=== PATIENT | male | born 1980 | race Two or more races ===

== ENCOUNTER 2019-04-22 11:49 | Inpatient (IN) | payer MEDICAID ==
[~2019-04-22] VITALS: Ht 167.6 cm; Wt 83.0 kg
[2019-04-22 11:55] VITALS: BP 138/71
[2019-04-22 13:09] LABS: BASOPHILS % (AUTO) 1.4 % (0.0-2.0); EOSINOPHILS % (AUTO) 0.6 % (0.0-3.0); HEMATOCRIT 37.3 % (42.0-52.0); HEMOGLOBIN 11.5 G/DL (14.2-18.0); MEAN CORPUSCULAR VOLUME 79 FL (80-99); MONOCYTES % (AUTO) 8.8 % (1.0-10.0); NEUTROPHILS % (AUTO) 76.3 % (45.0-75.0); PLATELET COUNT 133 K/UL (150-450); RED BLOOD COUNT 4.72 M/UL (4.70-6.10); RED CELL DISTRIBUTION WIDTH 16.5 % (11.6-14.8); WHITE BLOOD COUNT 7.4 K/UL (4.8-10.8)
[2019-04-22 13:10] LABS: ANION GAP 7 mmol/L (5-15); BLOOD UREA NITROGEN 15 mg/dL (7-18); CALCIUM 9.1 MG/DL (8.5-10.1); CARBON DIOXIDE 27 MMOL/L (21-32); CHLORIDE 108 MMOL/L (98-107); CREATININE 0.7 MG/DL (0.55-1.30); POTASSIUM 3.9 MMOL/L (3.5-5.1); SODIUM 142 MMOL/L (136-145)
--- NOTE | 2019-04-22 13:10 | Diagnostic Imaging Report ---
EXAM: CT Head Without Intravenous Contrast CLINICAL HISTORY: SZ TECHNIQUE: Axial computed tomography images of the head/brain without intravenous contrast. CTDI is 70.38 mGy and DLP is 1435 mGy-cm. One or more of the following dose reduction techniques were used: automated exposure control, adjustment of the mA and/or kV according to patient size, use of iterative reconstruction technique. COMPARISON: No relevant prior studies available. FINDINGS: Brain: No hemorrhage. No edema. Bifrontal-temporal encephalomalacia. Ventricles: No ventriculomegaly. Bones/joints: No acute fracture. Soft tissues: Unremarkable. Sinuses: No acute sinusitis. Mastoid air cells: No mastoid effusion. IMPRESSION: No acute intracranial process.
[2019-04-22 13:24] LABS: ALANINE AMINOTRANSFERASE 86 U/L (12-78); ALBUMIN 3.6 G/DL (3.4-5.0); ALBUMIN/GLOBULIN RATIO 0.8 (1.0-2.7); ALKALINE PHOSPHATASE 99 U/L (46-116); ASPARTATE AMINO TRANSFERASE 52 U/L (15-37); BILIRUBIN,TOTAL 0.6 MG/DL (0.2-1.0); CKMB 0.9 NG/ML (0.0-3.6); CREATINE KINASE 109 U/L (26-308)
--- NOTE | 2019-04-22 13:28 | Emergency Room Report ---
History of Present Illness General Chief Complaint: Seizure Source: Patient Present Illness HPI Disclaimer: Please note that this report is being documented using DRAGON technology. This can lead to erroneous entry secondary to incorrect interpretation by the dictating instrument. HPI: 38-year-old otherwise healthy male presents by EMS after reportedly having a generalized tonic-clonic seizure. According to EMS, they were called by a bystander as the patient was having convulsions on the sidewalk. The patient has no recollection. He denies having a seizure disorder, taking any medications for seizure, prior seizures, alcohol use, drug use or any recent change in his health. States he takes no medication. Denies any recent fevers , chills, vision changes, headaches, neck or back pain, chest pain, shortness of breath, vomiting, diarrhea, rash. PMH: Denies PSH: None Allergies: None Social Hx: Denies alcohol or drug use Allergies: Coded Allergies: No Known Allergies (Unverified , 04/22/19) Nursing Documentation-PMH Past Medical History: No Stated History Review of Systems All Other Systems: negative except mentioned in HPI Physical Exam Vital Signs Date Time Temp Pulse Resp B/P (MAP) Pulse Ox O2 Delivery O2 Flow Rate FiO2 04/22/19 11:39 97.5 108 18 112/62 (79) Room Air 04/22/19 11:55 97 General: Awake and alert, no acute distress HEENT: NC/AT. No scalp or face hematoma, lacerations or abrasions. EOMI. PERRLA. Visual boswell are full. No nystagmus. Facial expressions are symmetrical. No facial droop. Cardiovascular: RRR. S1 and S2 normal. No murmur appreciated Resp: Normal work of breathing. No cough, wheezing or crackles appreciated Abdomen: Abdomen is soft, nondistended. Nontender Skin: Intact. No abrasions, laceration or rash over the exposed skin MSK: Normal tone and bulk. Moving all extremities. No obvious deformity. There is no drift in the upper or lower extremities bilaterally. Neuro: Awake and alert. Mentating appropriately. Facial expression symmetrical. No dysarthria, no ataxia on [id number]-hgtpdr or auxw-rk-izrk testing. Sensation to light touch is intact over the upper and lower extremities. The patient has intact speech with good repetition, comprehension. Fund of knowledge is full. No aphasia, no neglect. Medical Decision Making Diagnostic Impression: Primary Impression: Seizure ER Course 38-year-old male with no reported medical history presents for evaluation of first-time seizure. He is awake, alert, physical exam is reassuring, no focal findings on neuro exam. Patient denies any drug or alcohol use, prior seizure history or taking any new medications. He appears returned to his baseline except he has no recollection of the events leading him today. We will start a broad work-up for metabolic, infectious causes of seizure disorder as well as a head CT to scan for intracranial bleed/mass. Laboratory Tests Test 04/22/19 12:35 04/22/19 14:08 White Blood Count 7.4 K/UL (4.8-10.8) Red Blood Count 4.72 M/UL (4.70-6.10) Hemoglobin 11.5 G/DL (14.2-18.0) L Hematocrit 37.3 % (42.0-52.0) L Mean Corpuscular Volume 79 FL (80-99) L Mean Corpuscular Hemoglobin 24.5 PG (27.0-31.0) L Mean Corpuscular Hemoglobin Concent 30.9 G/DL (32.0-36.0) L Red Cell Distribution Width 16.5 % (11.6-14.8) H Platelet Count 133 K/UL (150-450) L Mean Platelet Volume 15.7 FL (6.5-10.1) H Neutrophils (%) (Auto) 76.3 % (45.0-75.0) H Lymphocytes (%) (Auto) 13.0 % (20.0-45.0) L Monocytes (%) (Auto) 8.8 % (1.0-10.0) Eosinophils (%) (Auto) 0.6 % (0.0-3.0) Basophils (%) (Auto) 1.4 % (0.0-2.0) Sodium Level 142 MMOL/L (136-145) Potassium Level 3.9 MMOL/L (3.5-5.1) Chloride Level 108 MMOL/L (98-107) H Carbon Dioxide Level 27 MMOL/L (21-32) Anion Gap 7 mmol/L (5-15) Blood Urea Nitrogen 15 mg/dL (7-18) Creatinine 0.7 MG/DL (0.55-1.30) Estimat Glomerular Filtration Rate > 60 mL/min (>60) Glucose Level 148 MG/DL (74-106) H Calcium Level 9.1 MG/DL (8.5-10.1) Total Bilirubin 0.6 MG/DL (0.2-1.0) Aspartate Amino Transf (AST/SGOT) 52 U/L (15-37) H Alanine Aminotransferase (ALT/SGPT) 86 U/L (12-78) H Alkaline Phosphatase 99 U/L (46-116) Total Creatine Kinase 109 U/L (26-308) Creatine Kinase MB 0.9 NG/ML (0.0-3.6) Creatine Kinase MB Relative Index 0.8 Troponin I 0.000 ng/mL (0.000-0.056) Total Protein 8.2 G/DL (6.4-8.2) Albumin 3.6 G/DL (3.4-5.0) Globulin 4.6 g/dL Albumin/Globulin Ratio 0.8 (1.0-2.7) L Salicylates Level 0.3 ug/mL (2.8-20) L Acetaminophen Level < 2 MCG/ML (10-30) L Urine Color Yellow Urine Appearance Clear Urine pH 5 (4.5-8.0) Urine Specific [place] 1.025 (1.005-1.035) Urine Protein 3+ (NEGATIVE) H Urine Glucose (UA) Negative (NEGATIVE) Urine Ketones 1+ (NEGATIVE) H Urine Blood 3+ (NEGATIVE) H Urine Nitrite Negative (NEGATIVE) Urine Bilirubin Negative (NEGATIVE) Urine Urobilinogen Normal MG/DL (0.0-1.0) Urine Leukocyte Esterase 1+ (NEGATIVE) H Urine RBC 2-4 /HPF (0 - 0) H Urine WBC 0-2 /HPF (0 - 0) Urine Squamous Epithelial Cells None /LPF (NONE/OCC) Urine Bacteria Few /HPF (NONE) Urine Opiates Screen Negative (NEGATIVE) Urine Barbiturates Screen Negative (NEGATIVE) Phencyclidine (PCP) Screen Negative (NEGATIVE) Urine Amphetamines Screen Negative (NEGATIVE) Urine Benzodiazepines Screen Negative (NEGATIVE) Urine Cocaine Screen Negative (NEGATIVE) Urine Marijuana (THC) Screen Negative (NEGATIVE) EKG Diagnostic Results EKG Time: 12:37 EP Interpretation: Normal sinus rhythm, normal axis, normal intervals Rate: normal Rhythm: NSR ST Segments: no acute changes Rhythm Strip Diag. Results Rhythm Strip Time: 12:37 EP Interpretation: yes Rate: 83 Rhythm: NSR CT/MRI/US Diagnostic Results CT/MRI/US Diagnostic Results : Impression Final Report EXAM: CT Head Without Intravenous Contrast CLINICAL HISTORY: SZ TECHNIQUE: Axial computed tomography images of the head/brain without intravenous contrast. CTDI is 70.38 mGy and DLP is 1435 mGy-cm. One or more of the following dose reduction techniques were used: automated exposure control, adjustment of the mA and/or kV according to patient size, use of iterative reconstruction technique. COMPARISON: No relevant prior studies available. FINDINGS: Brain: No hemorrhage. No edema. Bifrontal-temporal encephalomalacia. Ventricles: No ventriculomegaly. Bones/joints: No acute fracture. Soft tissues: Unremarkable. Sinuses: No acute sinusitis. Mastoid air cells: No mastoid effusion. IMPRESSION: No acute intracranial process. Radiologist: Gabe Loomis M.D. Electronically Signed: 04/22/19 13:09 Study ready at 13:06 and initial results transmitted at 13:09 Reevaluation Time: 13:27 Last Vital Signs Date Time Temp Pulse Resp B/P (MAP) Pulse Ox O2 Delivery O2 Flow Rate FiO2 04/22/19 11:55 98.3 103 18 138/71 97 Room Air Reevaluation Impression Alerted by nursing staff that the patient had a brief episode of generalized tonic-clonic convulsions. By the time I went to assess the patient he had already finished. He will be loaded with [address] scan of the head is pending. Lab work thus far unremarkable. 1420: CT scan of the head shows no evidence of mass, bleed or other significant pathology. The patient is easily arousable but again has no recollection of the events. He appears to have suffered his second seizure and will require admission for further work-up and neurology evaluation. Tox screen is negative. 1+ leukocyte esterase on urine though overall does not look grossly infectious. He is amenable to admission. Disposition: ADMITTED INPATIENT Condition: Serious Referrals: NOT CHOSEN IPA/,REFERRING (PCP) Desmond Awan MD Apr 22, 2019 13:28
[2019-04-22] MEDS ORDERED: levETIRAcetam 1,000mg/NS100ml 100 ML IVPB ONE (13:30)
[2019-04-22 14:11] VITALS: BP 135/94
[2019-04-22 14:25] LABS: APPEARANCE,URINE CLEAR; BILIRUBIN, URINE NEGATIVE (NEGATIVE); GLUCOSE, URINE (UA) NEGATIVE (NEGATIVE); KETONES,URINE 1+ (NEGATIVE); LEUKOCYTE ESTERASE ,URINE 1+ (NEGATIVE); NITRITE,URINE NEGATIVE (NEGATIVE); PH,URINE 5 (4.5-8.0); PROTEIN,URINE 3+ (NEGATIVE); UROBILINOGEN,URINE NORMAL MG/DL (0.0-1.0)
[2019-04-22 14:36] LABS: COLOR,URINE YELLOW
[2019-04-22] MEDS ORDERED: Hydromorphone 0.5mg/0.5ml inj IVP PRN (14:45)
[2019-04-22] MEDS ORDERED: Milk of Magnesia 30ml Ud ORAL PRN (14:45)
[2019-04-22] MEDS ORDERED: Miralax 17gm pkt ORAL PRN (14:45)
[2019-04-22] MEDS ORDERED: Acetaminophen 650 MG SUPP RECTAL PRN ×2 (14:45)
[2019-04-22] MEDS ORDERED: Gadavist 7.5mMol/7.5ml vial IV PRN (14:45)
[2019-04-22] MEDS ORDERED: traMADol 50mg tab ORAL PRN (14:45)
[2019-04-22] MEDS ORDERED: LORazepam Inj 2mg/ml 1ml IV PRN (14:45)
[2019-04-22] MEDS ORDERED: Metoclopramide 10mg/2ml Inj IVP PRN (14:45)
[2019-04-22] MEDS ORDERED: Zolpidem 5mg tab ORAL PRN (14:45)
[2019-04-22] MEDS ORDERED: Docusate 100mg cap ORAL PRN ×2 (14:58→15:15)
[2019-04-22 15:05] VITALS: BP 138/85
--- NOTE | 2019-04-22 15:31 | Diagnostic Imaging Report ---
EXAM: XR Chest, 1 View CLINICAL HISTORY: SOB TECHNIQUE: Frontal view of the chest. COMPARISON: No relevant prior studies available. FINDINGS: Lungs: Reduced lung volumes and accentuation of markings. No confluent consolidation. Pleural space: Unremarkable. No pneumothorax. Heart: Cardiomegaly. Mediastinum: Unremarkable. Bones/joints: No acute fracture. IMPRESSION: Reduced lung volumes and accentuation of markings. No confluent consolidation.
[2019-04-22] MEDS ORDERED: HydrALAZINE 25mg tab ORAL PRN (15:45)
[2019-04-22 16:02] VITALS: BP 140/91
[2019-04-22] MEDS ORDERED: Enoxaparin 40mg Inj SUBQ SCH ×2 (16:08→17:00)
[2019-04-22 16:20] VITALS: BP 149/95
--- NOTE | 2019-04-22 18:37 | Diagnostic Imaging Report ---
EXAM: MR Head Without And With Intravenous Contrast CLINICAL HISTORY: SZ TECHNIQUE: Magnetic resonance images of the head/brain without and with intravenous contrast in multiple planes. COMPARISON: No relevant prior studies available. FINDINGS: Brain: No acute infarct. Bifrontal-temporal encephalomalacia. Ventricles: Unremarkable. No ventriculomegaly. Bones/joints: Unremarkable. Sinuses: Unremarkable as visualized. No acute sinusitis. Mastoid air cells: Unremarkable as visualized. No mastoid effusion. Orbits: Unremarkable as visualized. Other findings: Hemosiderin staining from prior intracranial hemorrhage. IMPRESSION: No acute infarct.
[2019-04-22 20:00] VITALS: BP 149/100
[2019-04-22 20:47] LABS: CREATINE KINASE 99 U/L (26-308)
[2019-04-23] VITALS: BP 136/79
[2019-04-23 04:00] VITALS: BP 141/81
[2019-04-23 06:44] LABS: BASOPHILS % (AUTO) 0.9 % (0.0-2.0); EOSINOPHILS % (AUTO) 1.2 % (0.0-3.0); HEMATOCRIT 37.8 % (42.0-52.0); HEMOGLOBIN 11.8 G/DL (14.2-18.0); MEAN CORPUSCULAR VOLUME 79 FL (80-99); MONOCYTES % (AUTO) 9.8 % (1.0-10.0); PLATELET COUNT 130 K/UL (150-450); RED BLOOD COUNT 4.79 M/UL (4.70-6.10); RED CELL DISTRIBUTION WIDTH 16.2 % (11.6-14.8); WHITE BLOOD COUNT 8.6 K/UL (4.8-10.8)
[2019-04-23 07:18] LABS: ANION GAP 8 mmol/L (5-15); BLOOD UREA NITROGEN 10 mg/dL (7-18); CALCIUM 9.2 MG/DL (8.5-10.1); CARBON DIOXIDE 27 MMOL/L (21-32); CHLORIDE 103 MMOL/L (98-107); CREATININE 0.6 MG/DL (0.55-1.30); POTASSIUM 3.2 MMOL/L (3.5-5.1); SODIUM 138 MMOL/L (136-145)
[2019-04-23 08:00] VITALS: BP 117/80
--- NOTE | 2019-04-23 10:03 | History and Physical ---
History of Present Illness General Date patient seen: Apr 23, 2019 Time patient seen: 11:00 Reason for Hospitalization: Seizure Present Illness HPI Patient is a poor historian history obtained from chart "38-year-old otherwise healthy male presents by EMS after reportedly having a generalized tonic-clonic seizure. According to EMS, they were called by a bystander as the patient was having convulsions on the sidewalk. The patient has no recollection. He denies having a seizure disorder, taking any medications for seizure, prior seizures, alcohol use, drug use or any recent change in his health. States he takes no medication. Denies any recent fevers , chills, vision changes, headaches, neck or back pain, chest pain, shortness of breath, vomiting, diarrhea, rash." On my conversation patient says that he has had a prior history of seizures and takes medication. Allergies: Coded Allergies: No Known Allergies (Unverified , 04/22/19) Medication History Scheduled Levetiracetam (Keppra), 500 MG ORAL Q12HR Patient History History Provided By: Medical Record, EMS Healthcare decision maker Resuscitation status Full Code Advanced Directive on File No Patient History Narrative PFH: denies Soc history: denies drugs Review of Systems All Other Systems: negative except mentioned in HPI Physical Exam General Appearance: no apparent distress, alert Lines, tubes and drains: peripheral HEENT: normocephalic, atraumatic, anicteric Neck: non-tender, normal alignment, supple Respiratory/Chest: chest wall non-tender, lungs clear, normal breath sounds Cardiovascular/Chest: normal peripheral pulses, normal rate, regular rhythm Abdomen: normal bowel sounds, non tender, soft Extremities: normal range of motion, non-tender, normal inspection Skin Exam: normal pigmentation, warm/dry Neurologic: wearing apparel shaker II-XII grossly normal Last 24 Hour Vital Signs Date Time Temp Pulse Resp B/P (MAP) Pulse Ox O2 Delivery O2 Flow Rate FiO2 04/23/19 08:00 97.9 65 18 117/80 (92) 97 04/23/19 08:00 66 04/23/19 04:00 97.7 61 18 141/81 (101) 99 04/23/19 03:35 56 04/23/19 00:00 97.8 64 18 136/79 (98) 97 04/22/19 23:44 61 04/22/19 21:00 Room Air 04/22/19 20:09 73 04/22/19 20:00 97.8 74 16 149/100 (116) 96 04/22/19 19:12 98.2 82 18 132/71 99 Room Air 04/22/19 18:46 Room Air 04/22/19 16:20 99.3 86 18 149/95 (113) 99 04/22/19 16:18 75 04/22/19 16:02 98.2 81 16 140/91 99 Room Air 04/22/19 15:05 98.2 87 18 138/85 99 Room Air 04/22/19 14:11 98.3 93 18 135/94 96 Room Air 04/22/19 11:55 98.3 103 18 138/71 97 Room Air 04/22/19 11:55 103 18 Room Air 04/22/19 11:39 97.5 108 18 112/62 (79) Room Air Intake and Output 04/22/19 04/23/19 19:00 07:00 Intake Total 900 ml Output Total 200 ml Balance 700 ml Intake Oral 500 ml IV Total 400 ml Output Urine Total 200 ml Laboratory Tests Test 04/22/19 12:35 04/22/19 14:08 04/22/19 20:03 04/23/19 05:10 White Blood Count 7.4 K/UL (4.8-10.8) 8.6 K/UL (4.8-10.8) Red Blood Count 4.72 M/UL (4.70-6.10) 4.79 M/UL (4.70-6.10) Hemoglobin 11.5 G/DL (14.2-18.0) L 11.8 G/DL (14.2-18.0) L Hematocrit 37.3 % (42.0-52.0) L 37.8 % (42.0-52.0) L Mean Corpuscular Volume 79 FL (80-99) L 79 FL (80-99) L Mean Corpuscular Hemoglobin 24.5 PG (27.0-31.0) L 24.5 PG (27.0-31.0) L Mean Corpuscular Hemoglobin Concent 30.9 G/DL (32.0-36.0) L 31.1 G/DL (32.0-36.0) L Red Cell Distribution Width 16.5 % (11.6-14.8) H 16.2 % (11.6-14.8) H Platelet Count 133 K/UL (150-450) L 130 K/UL (150-450) L Mean Platelet Volume 15.7 FL (6.5-10.1) H 16.9 FL (6.5-10.1) H Neutrophils (%) (Auto) 76.3 % (45.0-75.0) H 65.0 % (45.0-75.0) Lymphocytes (%) (Auto) 13.0 % (20.0-45.0) L 23.0 % (20.0-45.0) Monocytes (%) (Auto) 8.8 % (1.0-10.0) 9.8 % (1.0-10.0) Eosinophils (%) (Auto) 0.6 % (0.0-3.0) 1.2 % (0.0-3.0) Basophils (%) (Auto) 1.4 % (0.0-2.0) 0.9 % (0.0-2.0) Sodium Level 142 MMOL/L (136-145) 138 MMOL/L (136-145) Potassium Level 3.9 MMOL/L (3.5-5.1) 3.2 MMOL/L (3.5-5.1) L Chloride Level 108 MMOL/L (98-107) H 103 MMOL/L (98-107) Carbon Dioxide Level 27 MMOL/L (21-32) 27 MMOL/L (21-32) Anion Gap 7 mmol/L (5-15) 8 mmol/L (5-15) Blood Urea Nitrogen 15 mg/dL (7-18) 10 mg/dL (7-18) Creatinine 0.7 MG/DL (0.55-1.30) 0.6 MG/DL (0.55-1.30) Estimat Glomerular Filtration Rate > 60 mL/min (>60) > 60 mL/min (>60) Glucose Level 148 MG/DL (74-106) H 84 MG/DL (74-106) Calcium Level 9.1 MG/DL (8.5-10.1) 9.2 MG/DL (8.5-10.1) Total Bilirubin 0.6 MG/DL (0.2-1.0) Aspartate Amino Transf (AST/SGOT) 52 U/L (15-37) H Alanine Aminotransferase (ALT/SGPT) 86 U/L (12-78) H Alkaline Phosphatase 99 U/L (46-116) Total Creatine Kinase 109 U/L (26-308) 99 U/L (26-308) Creatine Kinase MB 0.9 NG/ML (0.0-3.6) Creatine Kinase MB Relative Index 0.8 Troponin I 0.000 ng/mL (0.000-0.056) 0.003 ng/mL (0.000-0.056) 0.000 ng/mL (0.000-0.056) Total Protein 8.2 G/DL (6.4-8.2) Albumin 3.6 G/DL (3.4-5.0) Globulin 4.6 g/dL Albumin/Globulin Ratio 0.8 (1.0-2.7) L Prolactin Pending Salicylates Level 0.3 ug/mL (2.8-20) L Acetaminophen Level < 2 MCG/ML (10-30) L Serum Alcohol < 3 mg/dL Urine Color Yellow Urine Appearance Clear Urine pH 5 (4.5-8.0) Urine Specific [place] 1.025 (1.005-1.035) Urine Protein 3+ (NEGATIVE) H Urine Glucose (UA) Negative (NEGATIVE) Urine Ketones 1+ (NEGATIVE) H Urine Blood 3+ (NEGATIVE) H Urine Nitrite Negative (NEGATIVE) Urine Bilirubin Negative (NEGATIVE) Urine Urobilinogen Normal MG/DL (0.0-1.0) Urine Leukocyte Esterase 1+ (NEGATIVE) H Urine RBC 2-4 /HPF (0 - 0) H Urine WBC 0-2 /HPF (0 - 0) Urine Squamous Epithelial Cells None /LPF (NONE/OCC) Urine Bacteria Few /HPF (NONE) Urine Opiates Screen Negative (NEGATIVE) Urine Barbiturates Screen Negative (NEGATIVE) Phencyclidine (PCP) Screen Negative (NEGATIVE) Urine Amphetamines Screen Negative (NEGATIVE) Urine Benzodiazepines Screen Negative (NEGATIVE) Urine Cocaine Screen Negative (NEGATIVE) Urine Marijuana (THC) Screen Negative (NEGATIVE) Magnesium Level 2.1 MG/DL (1.8-2.4) 2.0 MG/DL (1.8-2.4) Thyroid Stimulating Hormone (TSH) 0.490 uiU/mL (0.358-3.740) Height (Feet): 5 Height (Inches): 6.00 Weight (Pounds): 183 Medications Current Medications Medications (Trade) Dose Ordered Sig/Kary Route PRN Reason Start Time Stop Time Status Last Admin Dose Admin Acetaminophen (Tylenol) 650 mg Q4H PRN ORAL Mild Pain (Pain Scale 1-3) 04/22/19 14:45 05/22/19 14:44 Acetaminophen (Tylenol) 650 mg Q4H PRN ORAL fever 04/22/19 14:45 05/22/19 14:44 Acetaminophen (Tylenol) 650 mg Q4H PRN RECTAL Mild Pain (Pain Scale 1-3) 04/22/19 14:45 05/22/19 14:44 Acetaminophen (Tylenol) 650 mg Q4H PRN RECTAL fever 04/22/19 14:45 05/22/19 14:44 Bisacodyl (Dulcolax) 10 mg DAILYPRN PRN RECTAL Constipation 04/22/19 15:15 05/22/19 14:44 Dextrose (Dextrose 50%) 25 ml Q30M PRN IV Hypoglycemia 04/22/19 14:45 05/22/19 14:44 Dextrose (Dextrose 50%) 50 ml Q30M PRN IV Hypoglycemia 04/22/19 14:45 05/22/19 14:44 Docusate Sodium (Colace) 200 mg Q12H PRN ORAL constipation 04/22/19 15:15 05/22/19 14:57 Enoxaparin Sodium (Lovenox) 40 mg Q24H SUBQ 04/22/19 17:00 05/22/19 16:59 Gadobutrol (Gadavist) 7.5 mmol NOW PRN IV Radiology Procedure 04/22/19 14:45 04/26/19 14:45 Hydralazine HCl (Apresoline) 25 mg Q8H PRN ORAL SBP >170, hold for HR >90 04/22/19 15:45 05/22/19 15:44 Hydromorphone HCl (Dilaudid) 0.5 mg Q6H PRN IVP severe pain 04/22/19 14:45 04/29/19 14:44 Levetiracetam (Keppra) 500 mg Q12HR ORAL 04/22/19 21:00 05/22/19 20:59 04/23/19 09:50 Lorazepam (Ativan 2mg/ml 1ml) 1 mg Q4H PRN IV seizures 04/22/19 14:45 04/29/19 14:44 Magnesium Hydroxide (Mom) 30 ml HSPRN PRN ORAL Constipation 04/22/19 14:45 05/22/19 14:44 Metoclopramide HCl (Reglan) 10 mg Q6H PRN IVP Nausea & Vomiting 04/22/19 14:45 05/22/19 14:44 Ondansetron HCl (Zofran) 4 mg Q6H PRN IVP Nausea & Vomiting 04/22/19 14:45 05/22/19 14:44 Pantoprazole (Protonix) 40 mg DAILY ORAL 04/23/19 09:00 05/23/19 08:59 04/23/19 09:51 Polyethylene Glycol (Miralax) 17 gm DAILYPRN PRN ORAL Constipation 04/22/19 14:45 05/22/19 14:44 Potassium Chloride (K-Dur) 40 meq ONCE ONCE ORAL 04/23/19 10:15 04/23/19 10:16 UNV Prochlorperazine (Compazine) 10 mg Q6H PRN IVP Nausea & Vomiting 04/22/19 14:45 05/22/19 14:44 Tramadol HCl (Ultram) 50 mg Q6H PRN ORAL moderate pain 04/22/19 14:45 04/29/19 14:44 Zolpidem Tartrate (Ambien) 5 mg QHS PRN ORAL insomnia 04/22/19 14:45 04/29/19 14:44 Assessment/Plan Diagnosis [place] I: # Tonic Clonic seizure suspect breakthrough seizure from non compliance - patient says he has had history of seizure in the past although he appears to be a poor historian - no neurologist available at [facility] - eeg showed non diagnostic findings - MRI brain negative - UDS negative - troponin and ekg neg - dc home on keppra # Hypokalemia replace Hillary Petersen DO Apr 23, 2019 10:03
--- NOTE | 2019-04-23 11:18 | Discharge Instructions ---
Discharge Instructions Discharge Instructions Follow up with: Neurology Diet: regular Resume Normal Activity?: Yes Activity: as tolerated For Surgical Patients Contact your physician for: bleeding, pain, tenderness For Congestive Heart Failure Reminder Report to your physician any weight gain of 5 pounds or more in one week. Hillary Petersen DO Apr 23, 2019 11:18
[2019-04-23] MEDS ORDERED: KEPPRA500 MG ORAL (11:19)
[2019-04-23 12:00] VITALS: BP 127/78
[2019-04-23 13:28] LABS: % IRON SATURATION 48 % (15-50); IRON 189 ug/dL (50-175); TOTAL IRON BINDING CAPACITY 393 ug/dL (250-450)
--- NOTE | 2019-04-24 19:13 | Discharge Summary ---
Discharge Summary Hospital Course Date of Admission Apr 22, 2019 at 13:57 Date of Discharge Apr 23, 2019 at 15:40 Admitting Diagnosis Seizures Reason for Hospitalization: seizure HPI Endy Upton is a 38 year old male who was admitted on Apr 22, 2019 at 13:57 for Seizures Patient is a poor historian. Per EMS, they were called by a bystander for patient having tonic-clonic seizures. In ED patient has another seizure that resolved with Keppra. Patient was admitted for workup. He was found to have negative UDS, undiagnostic EEG, negative MRI, no infectious source was identified. No neurologist was available for consult. Patient was discharged [facility] on keppra for outpatient follow up with Neurology. Consultations none Procedures eeg mri Hospital Course as above Discharge Medications New Medications: Levetiracetam (Keppra) 250 Mg Tablet 500 MG ORAL Q12HR, #60 TAB 0 Refills Discharge Condition Upon Discharge: stable Discharge Disposition Patient was discharged to [facility] for medication compliance Discharge Diagnoses: (1) Breakthrough seizure (2) Hypokalemia Discharge Instructions Discharge Instructions Follow up with: Neurology Activity: as tolerated For Surgical Patients Contact your physician for: bleeding, pain, tenderness Hillary Petersen DO Apr 24, 2019 19:13
--- NOTE | 2019-04-24 21:45 | Electroencephalogram ---
DATE OF PROCEDURE: 04/24/2019 REQUESTING PHYSICIAN: Li Stoner M.D. READING PHYSICIAN: Liang Tafoya M.D. PROCEDURE PERFORMED: Electroencephalogram. HISTORY: This EEG was performed on a 38-year-old gentleman with a new onset tonic-clonic seizure. The purpose of this EEG was to evaluate the patient for the degree and type of cerebral dysfunction and to exclude ongoing ictal or interictal phenomena. TECHNICAL NOTE: This EEG was performed on a [employer] with electrodes placed on the scalp according to the international 10-20 system. [id number]-[id number] and [id number]-[id number] montages were used. The EEG was technically satisfactory and was performed in the awake, drowsy, and sleep states. OBSERVATIONS: In the best awake state, the background activity consisted of 9 to 9.5 hertz posteriorly predominant well-developed alpha waveforms, which attenuated on eye opening. Drowsiness was characterized by dissolution of alpha rhythm and appearance of slow frequencies in the 4 to 5 hertz theta range. During drowsiness, left frontotemporal polymorphic delta activity was noted. Stage 2 sleep was characterized by further slowing of the background in the delta and theta range, the presence of vertex waves, and 14 hertz sleep spindles. Photic stimulation was performed at various different frequencies and produced a normal driving response. Hyperventilation was performed for 3 minutes with an adequate effort and produced increase left frontal temporal polymorphic delta activity. IMPRESSION: This is an abnormal EEG characterized by left frontotemporal polymorphic delta activity seen during drowsiness and during hyperventilation. COMMENT: The study is consistent with left frontal temporal focal dysfunction. Clinical correlation is recommended. Liang Tafoya M.D. DR: DANITA JOB#: [id number] CC:
== END 2019-04-23 15:40 | disposition home health service (06) | DRG 53 ==
LOC: EDBD 11:49 → EMR 12:46 → 2W 13:57 → EDBEDREQ 15:31
DX: G40.89 Other seizures (principal); E87.6 Hypokalemia
CPT/HCPCS: 36415; 70450; 70553; 71045; 80048; 80053; 80299; 80307; 80329; 81003; 82550; 82553; 82962; 83540; 83550; 83735; 84146; 84443; 84484; 85025; 93005; 95819; 96365; 99285; A9585; J8499